=== PATIENT | male | born 1960 | race Caucasian/White ===

== ENCOUNTER 2023-06-22 08:20 | Outpatient (OUT) | payer BC, SELFPAY ==
[2023-06-22 09:04] LABS: Basophils Absolute Auto 0.1 10^3/uL (0.0-0.1); Basophils Percent Auto 1.2 % (0.2-2.0); Eosinophils Absolute Auto 0.2 10^3/uL (0.0-0.7); Eosinophils Percent Auto 4.5 % (0.9-7.0); Hematocrit 46.4 % (42.0-54.0); Hemoglobin 14.9 g/dL (14.0-18.0); Immature Granulocytes Abs Auto 0.01 10^3/uL (0.00-0.03); Immature Granulocytes Pct Auto 0.2 % (0.0-0.5); Lymphocytes Absolute Auto 1.9 10^3/uL (1.2-3.8); Lymphocytes Percent Auto 36.2 % (20.5-60.0); Mean Corpuscular HGB Conc 32.1 g/dL (29.9-35.2); Mean Corpuscular Hemoglobin 32.1 pg (25.9-34.0); Mean Platelet Volume 9.7 fL (9.5-13.5); Monocytes Absolute Auto 0.5 10^3/uL (0.3-0.8); Monocytes Percent Auto 10.1 % (1.7-12.0); Neutrophils Absolute Auto 2.5 10^3/uL (1.4-6.5); Neutrophils Percent Auto 47.8 % (43.0-75.0); Platelet Count 220 10^3/uL (150-450); Red Blood Count 4.64 10^6/uL (4.70-6.10); Red Cell Distribution Width 12.3 % (11.0-15.0); White Blood Count 5.2 10^3/uL (4.0-11.0)
[2023-06-22 10:03] LABS: Alanine Aminotransferase 43 U/L (16-63); Albumin Globulin Ratio 1.2; Alkaline Phosphatase 59 U/L (46-116); Anion Gap 11.8; Aspartate Amino Transferase 21 U/L (15-37); BUN Creatinine Ratio 13.3; Bilirubin Total 0.6 mg/dL (0.2-1.0); Calcium 9.5 mg/dL (8.5-10.1); Carbon Dioxide 30.9 mmol/L (21.0-32.0); Chloride 103 mmol/L (98-107); Chol HDL Ratio 4.1; Cholesterol 183 mg/dL (<=200); Estimated GFR (African America >60 (>=60); Estimated GFR (Non-African Ame >60 (>=60); Globulin 3.4 g/dL; Glucose 118 mg/dL (74-106); HDL Cholesterol 45 mg/dL (40-60); Potassium 4.7 mmol/L (3.5-5.1); Sodium 141 mmol/L (136-145); Total Protein 7.4 g/dL (6.4-8.2); Triglycerides 150 mg/dL (<=150)
[2023-06-22 10:25] LABS: Prostate Specific Antigen Scrn 0.49 ng/mL (<=4.00)
== END 2023-06-22 08:21 | disposition home or self-care (01) ==
LOC: LAB 08:23
PROVIDERS: PCP Internal Medicine; Visit Provider Internal Medicine
DX: Z00.00 Encounter for general adult medical examination without abnormal findings (principal)
CPT/HCPCS: 36415; 80053; 80061; 85025; G0103

== ENCOUNTER 2024-01-08 11:20 | Emergency (ER) | payer BC, SELFPAY ==
[2024-01-08 11:23] VITALS: BP 140/115; PULSE 80; TEMP 36.7; O2SAT 96; BMI 30.4
--- NOTE | 2024-01-08 11:36 | CT_ITS ---
[address] [address] Patient Name: LEXI ARAUZ MRN: [id number] date: 1960 Sex: M Assigned Patient Location: ER Current Patient Location: ER Accession/Order Number: [id number] Exam Date: 01/08/2024 12:08 Report Date: 01/08/2024 13:15 At the request of: GRAY BURRIS Procedure: CT abdomen pelvis wo con EXAM: CT abdomen pelvis wo con HISTORY: left flank pain COMPARISON: None. TECHNIQUE: CT abdomen pelvis without contrast. Axial scans with reformatted coronal sagittal images. Individualized radiation dose reduction used for this exam. FINDINGS: Lower chest: Abnormal basilar lung density bilateral. Groundglass/linear and possible 5 mm nodule left base. Probable atelectasis/scarring.. ABDOMEN: Kidneys/urinary tract: Mild left hydronephrosis and heart ureter secondary to a small 1-2 mm calculus in the distal left ureter at or near the ureterovesical junction. Left renal calculus or perirenal stranding. Right kidney ureter unremarkable without renal or ureteral calculus. Fluid-filled bladder with a small calculus distal left ureter noted above. Normal right pelvic ureter. Liver unremarkable. Small dependent gallstone without surrounding inflammation. No biliary dilatation. Adrenal glands, pancreas, spleen unremarkable. No ascites or free fluid. No adenopathy. Mildly ectatic aorta without aneurysm. Minimal plaque. No bowel dilatation ileus or obstruction. Normal-appearing appendix right lower quadrant. Pelvis: No mass or adenopathy or free fluid. Small calculus distal left ureter as noted above. Mildly prominent prostate with calcification. Fluid-filled bladder. MUSCULOSKELETAL: Previous lumbar surgery with pedicle screws L4, L5 and S1. Disc spacers L4-5 and L5-S1. Severe degenerative disc is a above the surgical level at L3-4 with osteophytes most prominent anteriorly and minimal anterolisthesis of L4. Severe facet arthropathy. Probable canal stenosis. CT/CT abdomen pelvis wo con IMPRESSION: 1. Mild left hydronephrosis and hydroureter secondary to a small 1-2 mm obstructing calculus distal left ureter near the ureterovesical junction. Mildly prominent prostate with calcification. 2. Small dependent gallstone without evidence of cholecystitis. 3. Basilar lung density probably areas of chronic atelectasis/scarring. Consider follow-up if symptomatic. Possible small nodule 5 mm left lung base. 4. Postoperative appearance lumbar sacral spine. Severe degenerative disc disease possible canal stenosis above the surgical level at L3-4. Electronically authenticated by: KIT JIMENEZ Date: 01/08/2024 13:15
[2024-01-08 11:43] LABS: Basophils Absolute Auto 0.1 10^3/uL (0.0-0.1); Basophils Percent Auto 0.7 % (0.2-2.0); Eosinophils Absolute Auto 0.3 10^3/uL (0.0-0.7); Eosinophils Percent Auto 3.7 % (0.9-7.0); Hematocrit 45.3 % (42.0-54.0); Hemoglobin 15.3 g/dL (14.0-18.0); Immature Granulocytes Abs Auto 0.02 10^3/uL (0.00-0.03); Immature Granulocytes Pct Auto 0.3 % (0.0-0.5); Lymphocytes Absolute Auto 2.5 10^3/uL (1.2-3.8); Lymphocytes Percent Auto 35.6 % (20.5-60.0); Mean Corpuscular HGB Conc 33.8 g/dL (29.9-35.2); Mean Corpuscular Hemoglobin 33.2 pg (25.9-34.0); Mean Corpuscular Volume 98.3 fL (80.0-94.0); Mean Platelet Volume 9.2 fL (9.5-13.5); Monocytes Absolute Auto 0.8 10^3/uL (0.3-0.8); Monocytes Percent Auto 10.6 % (1.7-12.0); Neutrophils Absolute Auto 3.5 10^3/uL (1.4-6.5); Neutrophils Percent Auto 49.1 % (43.0-75.0); Platelet Count 238 10^3/uL (150-450); Red Blood Count 4.61 10^6/uL (4.70-6.10); Red Cell Distribution Width 12.4 % (11.0-15.0); White Blood Count 7.1 10^3/uL (4.0-11.0)
[2024-01-08] MEDS: KETOROLAC TROMETHAMINE 30 MG/ML VIAL IVP (11:45)
[2024-01-08] MEDS: HYDROMORPHONE HCL 0.5 MG/0.5 ML SYRINGE IV (11:45)
[2024-01-08] MEDS: ONDANSETRON PF 4 MG/2 ML VIAL IV (11:45)
[2024-01-08 11:46] LABS: BUN Creatinine Ratio 13.7; Calcium 9.5 mg/dL (8.5-10.1); Carbon Dioxide 28.9 mmol/L (21.0-32.0); Chloride 102 mmol/L (98-107); Estimated GFR (African America >60 (>=60 mL/min/1.73m^2); Estimated GFR (Non-African Ame >60 (>=60 mL/min/1.73m^2); Glucose 103 mg/dL (74-106); Potassium 3.9 mmol/L (3.5-5.1); Sodium 139 mmol/L (136-145)
[2024-01-08 11:49] VITALS: O2SAT 97
--- NOTE | 2024-01-08 12:51 | ED_ITS ---
HPI HPI - General Adult General Chief complaint: Back Pain/Injury Stated complaint: ABDOMINAL PAIN Time Seen by Provider: 01/08/24 11:22 Source: patient Mode of arrival: walk-in History of Present Illness HPI narrative: 63-year-old male to the emergency department with chief complaint of left-sided flank pain. Feels similar to previous kidney stones. He is a sharp pain. Intermittent in nature. 10 out of 10 at worst. He denies any fever, sweats, chills. He reports nausea without vomiting. Radiates into the left groin. Normal bowel movements. Otherwise at his baseline health. Symptoms began this morning. Related Data Previous Rx's ?Medication ?Instructions ?Recorded ondansetron 4 mg disintegrating 4 mg PO Q8H PRN nausea and 01/08/24 tablet vomiting 4 days #16 tabs oxycodone-acetaminophen 5 mg-325 1 tab PO Q8H PRN pain 3 days #12 01/08/24 mg tablet (Percocet) tabs Allergies Allergy/AdvReac Type Severity Reaction Status Date / Time morphine Allergy Severe Difficulty Verified 01/08/24 11:23 Breathing Opioid HPI Opioid Management Most Recent Opioid Data: Last Pain Scale 8 01/08/24 11:45 01/08/24 Last MAR Pain Assessment 01/08/24 11:45 Review of Systems ROS Status of ROS 10 or more systems reviewed and unremark able except as noted in history and below Exam Narrative Exam Narrative: VITALS: I have reviewed the triage vital signs. GENERAL: Uncomfortable appearing adult male holding left flank. NEURO: Alert and oriented. Moves all extremities. Face is symmetric and expressive. EYES: PERRL. No scleral icterus or conjunctival injection. No discharge. HENT: Normocephalic, atraumatic. Hearing is grossly intact. Nares grossly patent and without discharge. Mucous membranes moist. NECK: No JVD. Patient moves neck without restriction. CARDIO: Rhythm regular. Normal rate. No murmur, rub, or gallop. Pulses equal bilaterally in the upper and lower extremity. No lower extremity edema. PULM: Lungs clear to auscultation in all bundy. No wheezes, rales, or rhonchi. No conversational dyspnea. No splinting, stridor, or accessory muscle use. GI/: Abdomen is soft and non-tender. Left flank tenderness. Normoactive bowel sounds. EXTREMITIES: Symmetric muscle bulk. No joint swelling. No clubbing, cyanosis, or deformity. SKIN: Warm and dry. Normal turgor. No rash or lesions appreciated. PSYCH: Mood, affect, and interaction is appropriate to the setting. Constitutional Vital Signs, click to edit/add: Last Vital Signs Temp 98.1 F 01/08/24 11:23 Pulse 56 L 01/08/24 13:52 Resp 16 01/08/24 13:52 BP 150/90 H 01/08/24 13:52 Pulse Ox 96 01/08/24 13:52 O2 Del Method Room Air 01/08/24 11:49 Course Vital Signs Vital signs: Vital Signs Temperature 98.1 F 01/08/24 11:23 Pulse Rate 80 01/08/24 11:23 Respiratory Rate 20 01/08/24 11:23 Blood Pressure 140/115 H 01/08/24 11:23 Pulse Oximetry 96 01/08/24 11:23 Oxygen Delivery Method Room Air 01/08/24 11:23 Temperature 98.1 F 01/08/24 11:23 Pulse Rate 56 L 01/08/24 13:52 Respiratory Rate 16 01/08/24 13:52 Blood Pressure 150/90 H 01/08/24 13:52 Pulse Oximetry 96 01/08/24 13:52 Oxygen Delivery Method Room Air 01/08/24 11:49 Medical Decision Making [facility] Narrative Medical decision making narrative: 63-year-old male to the emergency department with chief complaint of left-sided flank pain. Vital stable, the patient is afebrile. He is in obvious discomfort, holding his left flank. High clinical suspicion for kidney stone based on history and exam. Will proceed with CT imaging, basic labs, urinalysis. Morphine, Toradol, Zofran for symptoms. Patient agrees with this plan. Lab Data Labs: Lab Results 01/08/24 01/08/24 Range/Units 11:28 13:15 WBC 7.1 (4.0-11.0) 10^3/uL RBC 4.61 L (4.70-6.10) 10^6/uL Hgb 15.3 (14.0-18.0) g/dL Hct 45.3 (42.0-54.0) % MCV 98.3 H (80.0-94.0) fL MCH 33.2 (25.9-34.0) pg MCHC 33.8 (29.9-35.2) g/dL RDW 12.4 (11.0-15.0) % Plt Count 238 (150-450) 10^3/uL MPV 9.2 L (9.5-13.5) fL Neut % (Auto) 49.1 (43.0-75.0) % Lymph % (Auto) 35.6 (20.5-60.0) % Hernando % (Auto) 10.6 (1.7-12.0) % Eos % (Auto) 3.7 (0.9-7.0) % Baso % (Auto) 0.7 (0.2-2.0) % Neut # (Auto) 3.5 (1.4-6.5) 10^3/uL Lymph # (Auto) 2.5 (1.2-3.8) 10^3/uL Hernando # (Auto) 0.8 (0.3-0.8) 10^3/uL Eos # (Auto) 0.3 (0.0-0.7) 10^3/uL Baso # (Auto) 0.1 (0.0-0.1) 10^3/uL Abs Immat Gran (auto) 0.02 (0.00-0.03) 10^3/uL Imm/Tot Granulo (auto) 0.3 (0.0-0.5) % Sodium 139 (136-145) mmol/L Potassium 3.9 (3.5-5.1) mmol/L Chloride 102 (98-107) mmol/L Carbon Dioxide 28.9 (21.0-32.0) mmol/L Anion Gap 12.0 BUN 16.0 (7.0-18.0) mg/dL Creatinine 1.17 (0.70-1.30) mg/dL Est GFR ( Amer) >60 (>=60 mL/min/1.73m^2) Est GFR (Non-Af Amer) >60 (>=60 mL/min/1.73m^2) BUN/Creatinine Ratio 13.7 Glucose 103 (74-106) mg/dL Calcium 9.5 (8.5-10.1) mg/dL Urine Color Lt. yellow (YELLOW) Urine Clarity Clear (CLEAR) Urine pH 6.0 (5.0-9.0) Ur Specific [place] 1.010 (1.005-1.025) Urine Protein Negative (NEG/TRACE) mg/dL Urine Glucose (UA) Negative (NEGATIVE) mg/dL Urine Ketones Negative (NEGATIVE) mg/dL Urine Occult Blood Large A (NEGATIVE) Urine Nitrite Negative (NEGATIVE) Urine Bilirubin Negative (NEGATIVE) Urine Urobilinogen 0.2 (0.2-1.0) EU/dL Ur Leukocyte Esterase Negative (NEGATIVE) Urine RBC 20-50 A (0-2) #/HPF Urine WBC 0-2 A (NONE SEEN) #/HPF Ur Squamous Epith Cells Rare (NONE/RARE) #/LPF Urine Crystals None seen (None Seen) #/HPF Urine Bacteria Trace A (NONE SEEN) #/HPF Urine Casts None seen (NONE SEEN) #/LPF Urine Mucus Moderate A (NONE SEEN) Ur Culture Indicated? No Discharge Plan Discharge Chief Complaint: Back Pain/Injury Clinical Impression: Kidney stone on left side Patient Disposition: Home, Self-Care Time of Disposition Decision: 13:39 Condition: Good Mode of Transportation: Private Vehicle Prescriptions / Home Meds: New ondansetron 4 mg tablet,disintegrating 4 mg PO Q8H PRN (Reason: nausea and vomiting) 4 Days Qty: 16 0RF oxycodone-acetaminophen [Percocet] 5-325 mg tablet 1 tab PO Q8H PRN (Reason: pain) 3 Days Qty: 12 0RF Print Language: Bengali Instructions: Renal Colic (ED) Additional Instructions: Call the office of your primary care doctor to arrange for follow-up within the above-stated timeframe. Your ED visit was focused on your acute issue and does not replace primary care. You should review your labs, imaging, and diagnoses from this ED visit with your primary care physician. There may be non-emergent/ incidental findings that need further evaluation. You should review your vital signs including blood pressure with your PCP. If you were prescribed medications you should discuss possible side-effects and drug interactions with your pharmacist. Call 911 or go to the nearest Emergency Department if you develop any new or worsening symptoms. Seek immediate medical attention if you develop: worsening abdominal pain, new or worsening nausea, new or worsening vomiting, new or worsening diarrhea, chest pain, shortness of breath, pain with urination, problems urinating, fever, chills, weakness, or any new or worsening symptoms. Referrals: Rashawn Sanchez DO [Primary Care Provider] - 1 week Discharge Date/Time: 01/08/24 13:56
[2024-01-08 13:21] LABS: Bilirubin Urine NEGATIVE (NEGATIVE); Blood Urine LARGE (NEGATIVE); Clarity Urine CLEAR (CLEAR); Color Urine LT. YELLOW (YELLOW); Glucose Urine UA NEGATIVE (NEGATIVE); Ketones Urine NEGATIVE (NEGATIVE); Leukocyte Esterase Urine NEGATIVE (NEGATIVE); Nitrite Urine NEGATIVE (NEGATIVE); Protein Urine NEGATIVE (NEG/TRACE); Urobilinogen Urine 0.2 EU/dL (0.2-1.0)
[2024-01-08 13:22] LABS: Urine Microscopic Indicated YES
[2024-01-08 13:28] LABS: WBC Urine 0-2 #/HPF (NONE SEEN)
[2024-01-08 13:29] LABS: Bacteria Urine TRACE #/HPF (NONE SEEN); Cast Seen? NONE SEEN #/LPF (NONE SEEN); Crystals Seen? None Seen #/HPF (None Seen); Mucus Urine MODERATE (NONE SEEN); RBC Urine 20-50 #/HPF (0-2); Squamous Epithelial Cell Urine RARE #/LPF (NONE/RARE); Urine Culture Indicated NO
[2024-01-08 13:52] VITALS: BP 150/90; PULSE 56; O2SAT 96
== END 2024-01-08 13:56 | disposition home or self-care (01) ==
PROVIDERS: Emergency Provider Student in an Organized Health Care Education/Training Program; PCP Internal Medicine
DX: N20.0 Calculus of kidney (principal); Z87.442 Personal history of urinary calculi
CPT/HCPCS: 36415; 74176; 80048; 81001; 85025; 96374; 96375; 99285; J1171; J1885; J2405

== ENCOUNTER 2024-07-22 08:06 | Outpatient (OUT) | payer BC, SELFPAY ==
[2024-07-22 08:29] LABS: Basophils Percent Auto 0.9 % (0.2-2.0); Eosinophils Absolute Auto 0.3 10^3/uL (0.0-0.7); Eosinophils Percent Auto 5.9 % (0.9-7.0); Hematocrit 45.8 % (42.0-54.0); Hemoglobin 15.5 g/dL (14.0-18.0); Immature Granulocytes Abs Auto 0.01 10^3/uL (0.00-0.03); Immature Granulocytes Pct Auto 0.2 % (0.0-0.5); Lymphocytes Absolute Auto 1.8 10^3/uL (1.2-3.8); Lymphocytes Percent Auto 40.6 % (20.5-60.0); Mean Corpuscular HGB Conc 33.8 g/dL (29.9-35.2); Mean Corpuscular Hemoglobin 33.3 pg (25.9-34.0); Mean Corpuscular Volume 98.3 fL (80.0-94.0); Mean Platelet Volume 9.4 fL (9.5-13.5); Monocytes Absolute Auto 0.5 10^3/uL (0.3-0.8); Monocytes Percent Auto 11.6 % (1.7-12.0); Neutrophils Absolute Auto 1.8 10^3/uL (1.4-6.5); Neutrophils Percent Auto 40.8 % (43.0-75.0); Platelet Count 215 10^3/uL (150-450); Red Blood Count 4.66 10^6/uL (4.70-6.10); Red Cell Distribution Width 12.3 % (11.0-15.0); White Blood Count 4.4 10^3/uL (4.0-11.0)
[2024-07-22 08:54] LABS: Alanine Aminotransferase 40 U/L (16-63); Albumin Globulin Ratio 1.2; Alkaline Phosphatase 65 U/L (46-116); Anion Gap 10.9; Aspartate Amino Transferase 19 U/L (15-37); BUN Creatinine Ratio 15.9; Bilirubin Total 0.4 mg/dL (0.2-1.0); Calcium 9.4 mg/dL (8.5-10.1); Carbon Dioxide 29.9 mmol/L (21.0-32.0); Chloride 105 mmol/L (98-107); Chol HDL Ratio 5.6; Cholesterol 214 mg/dL (<=200); Estimated GFR (African America >60 (>=60 mL/min/1.73m^2); Estimated GFR (Non-African Ame >60 (>=60 mL/min/1.73m^2); Globulin 3.3 g/dL; Glucose 121 mg/dL (74-106); HDL Cholesterol 38 mg/dL (40-60); Potassium 4.8 mmol/L (3.5-5.1); Sodium 141 mmol/L (136-145); Total Protein 7.3 g/dL (6.4-8.2); Triglycerides 308 mg/dL (<=150); VLDL CHOLESTEROL 61.6 mg/dL
== END 2024-07-22 08:07 | disposition home or self-care (01) ==
LOC: LAB 08:07
PROVIDERS: PCP Internal Medicine; Visit Provider Internal Medicine
DX: Z00.00 Encounter for general adult medical examination without abnormal findings (principal); Z12.5 Encounter for screening for malignant neoplasm of prostate
CPT/HCPCS: 36415; 80053; 80061; 85025; G0103

== ENCOUNTER 2025-03-21 09:35 | Outpatient (OUT) | payer OTHER, SELFPAY ==
--- OUTSIDE RECORDS SUMMARY | 2025-03-21 09:46 | XMS_ITS | Clinical Summary ---
Author Organization [facility] Address [address] [address] [place] [address] Phone Care Team Providers Care Family Resource Management Professor Name Role Phone Unavailable Primary Care Provider Unavailabl e Social History Tobacco UseTypesPacks/DayYears UsedDateSmoking Tobacco: Never AssessedSex and Gender InformationValueDate RecordedSex Assigned at BirthNot on fileLegal Sex Male02/21/2022 5:49 PM ESTGender IdentityNot on fileSexual OrientationNot on file Plan of Treatment Not on file
--- OUTSIDE RECORDS SUMMARY | 2025-03-21 09:46 | XMS_ITS | Patient Health Record ---
Author Organization [facility] [place] Address [address] [place] [address] Care Team Providers Care Shearer [employer]ards Name Role Phone Rashawn Sanchez DO Primary Care Provider Unavaila ble Allergies Allergen (clinical drug ingredient) Drug/Non Drug Allergy documented on EMR Reaction Allergy Type Onset Date Status morphine morphine (uncoded) Unknown Allergy Active Reason For Referral No Information Medications Medication SIG (Take, Route, Frequency, Duration) Notes Start Date End Date Status CPM --- as directed Use as directed ever y 6-8 hrs; Duration: 21 days ActiveMS Contin 30 MG1 tablet Orally every 12 hrs; Duration: 15 daysNot-Taking Commode Bedsideas directedActiveUnloader brace -use as directed Medial Assistant Maintenance Manager Brace Daily; Duration: Expires in 5 yrs04/24/2016ActiveFinasteride 5 MG1 tablet Orally Once a dayActiveDiclofenac Sodium 75 MG1 tablet Orally Once a dayActive Citalopram HydrobromideActiveRapport RLSActivePercocet 5-325 MG1-2 tablets PRN Orally every 4-6 hrs; Duration: 10 daysActiveBath/Shower Seatas directedActive Azuphen MB 120 MG1 capsule Orally Four times a dayActiveLipitor 10 MG1 tablet Orally Once a dayActiveGabapentinActiveFolding Walker/Adultas directedActive Keflex 500 MG4 capsules Orally one hour before any dental procedure; Duration: 5 days02/02/2018ActiveHandicapped Tag -as directed - -; Duration: Expires in 1 yr. 01/21/2016Active Problems Problem Type SNOMED Code ICD Code Onset Dates Problem Status W/U Status Risk Notes Problem History of musculosk eletal operation (660042085) Aftercare following joint replacement surgery (Z47.1) ActiveconfirmedProblemOsteoarthritis of knee (815047201)Primary osteoarthritis of right knee (M17.11)ActiveconfirmedProblemOsteoarthritis of knee (574084153) Primary osteoarthritis of left knee (M17.12)ActiveconfirmedProblemOsteoarthritis of knee (995358904)Primary osteoarthritis of both knees (M17.0)Activeconfirmed ProblemHistory of left total knee replacement (0895104702477769)History of total left knee replacement (Z96.652)ActiveconfirmedProblemArtificial knee joint present (157591715580)History of total knee replacement (Z96.659)Activeconfirmed Plan Of Treatment No Information Insurance Providers Payer Name Payer Address Payer Phone Subscriber Number Group Number Insured Name Patient Relationship to Insured Coverage Start Date Coverage End Date BCBS OUT OF STATE [address] [place] [address] [id number] Balaji Hubbard Self - patient is the insured 2017 Medications Administered Medication Instructions Date of Administration Dosage Notes Depo-Medrol, 40 mg/mL mLDepo-Medrol, 40 mg/mL mLDepo-Medrol, 40 mg/mL06/17/2017 1 mL Medical (General) History Medical History History ICD Code Depression/Anxiety Kidney stonesSurgical History Surgery Date(Month/Year) Knee Arthroscopy 10/2001 Lt knee TKA 04/2015 lithotrypsy spinal hrhfmo41/2016LasikHospitalization History Reason Date(Month/Year) See above
--- OUTSIDE RECORDS SUMMARY | 2025-03-21 09:46 | XMS_ITS | Clinical Summary ---
Author Organization [facility] Address [address] [place] [address] Care Team Providers Care Associate Dean Of Students Name Role Phone Rashawn Sanchez DO Primary Care Provider [phone] Allergies Active AllergyReactionsCriticalityNoted DateCommentsMorphineAnaphylaxis, Shortness of breath,KzcmtctEnre64/18/2016 Medications MedicationSigDispense QuantityRefillsLast FilledStart DateEnd DateStatus acetaminophen (Tylenol) 325 MG tablet Take 650 mg by mouth every 4 (four) hours if neededActive atorvastatin (Lipitor) 40 MG tablet TAKE 1 TABLET BY MOUTH EVERY DAY FOR 30 DAYSActive citalopram (CeleXA) 20 MG tablet Daily at vcsobju2609/11/2023ctive Active Problems ProblemNoted DateDiagnosed DateSpondylosis without myelopathy or radiculopathy, lumbar mewigo4711/22/2023Failed back syndrome of lumbar spine11/22/2023Lumbar stenosis without neurogenic yahlnokhqeul88/25/2024MI 31.0-31.9,adult11/16/2023 Elevated uwaliwatptr07/19/1483Fxdlckjvhsmjcw31/19/2024ost-op pain11/16/2023 Primary maawfrau64/19/2024rimary osteoarthritis of both knees11/16/2023 Spondylosis of lumbar spine11/16/2023History of total knee arthroplasty, right 05/31/2019Osteoarthritis of knee05/17/2019Low back pain, pjzoxsdtocl91/22/2017 Spinal stenosis, lumbar region without neurogenic ugjbbbowweul33/16/2016 Ghjjcfdbxwxy35/21/2014 Social History Tobacco UseTypesPacks/DayYears UsedDateSmoking Tobacco: NeverSmokeless Tobacco: NeverAlcohol UseStandard Drinks/WeekCommentsDefer0 (1 standard drink = 0.6 oz pure alcohol)Sex and Gender InformationValueDate RecordedSex Assigned at Not on fileLegal NgfSddh5306/11/2022 7:10 PM EDTGender IdentityNot on fileSexual OrientationNot on file Last Filed Vital Signs Vital SignReadingTime TakenCommentsBlood Pressure--Pulse--Temperature-- Respiratory Rate--Oxygen Saturation--Inhaled Oxygen Concentration--Ugdqve43.7 kg (200 lb)06/01/2024 2:05 PM ISXIehdde652.7 cm (5' 8 )06/01/2024 2:05 PM ESTBody Mass Index30.41006/01/2024 2:05 PM EST Plan of Treatment Not on file Insurance Care Teams Team MemberRelationshipSpecialtyStart DateEnd Date Rashawn Sanchez DO [address] [place] [address] PCP - GeneralInternal Medicine11/13/22
--- OUTSIDE RECORDS SUMMARY | 2025-03-21 09:46 | XMS_ITS | Clinical Summary ---
Author Organization [facility] Address [address], [address] [place] [address] Care Team Providers Care Ward Aide Name Role Phone Rashawn Sanchez DO Primary Care Provider [phone] Allergies Active AllergyReactionsCriticalityNoted DateCommentsMorphineAnaphylaxisHigh 03/10/2018 Medications MedicationSigDispense QuantityRefillsLast FilledStart DateEnd DateStatus atorvastatin (LIPITOR) 40 MG tablet 10105/10/2017Active citalopram (CELEXA) 20 MG tablet Active diclofenac (VOLTAREN) 75 MG EC tablet Active finasteride (PROSCAR) 5 MG tablet Active alfuzosin (UROXATRAL) 10 MG extended release tablet Active acetaminophen (TYLENOL) 325 MG tablet Take 650 mg by mouth every 4 hours as needed for PainActive rivaroxaban (XARELTO) 10 MG TABS tablet Take 1 tablet by mouth daily (with breakfast) 10 tablet 05/31/2019ActiveHospital, Clinic, or Other Facility Administered Medication Ordered DoseRouteFrequencyStart DateEnd DateStatus lidocaine 1 % injection 4 mL Indications:Primary osteoarthritis of right knee4 vPGLUTIY56/13/2018Active methylPREDNISolone acetate (DEPO-MEDROL) injection 40 mg Indications:Primary osteoarthritis of right knee40 qqKELOSE50/13/2018Active Active Problems ProblemNoted DateDiagnosed DateBenign prostatic hyperplasia without lower urinary tract ozxjseab65/04/2020History of total knee arthroplasty, right 05/31/2019Post-op painHypertensionHyperlipidemiaAnxiety Family History Medical HistoryRelationNameCommentsHigh CholesterolFatherHigh Cholesterol Maternal GrandfatherHigh CholesterolMotherHigh CholesterolPaternal Grandfather RelationNameStatusCommentsFatherAliveMaternal GrandfatherAliveMotherAlive Paternal GrandfatherAlive Social History Tobacco UseTypesPacks/DayYears UsedDateSmoking Tobacco: NeverSmokeless Tobacco: Never Tobacco Cessation:Counseling Given: No Alcohol UseStandard Drinks/WeekCommentsYes0 (1 standard drink = 0.6 oz pure alcohol)rarelyAUDIT-CAnswerDate RecordedFrequency of Alcohol ConsumptionNever 12/31/2018Average Number of DrinksNot on file12/31/2018Frequency of Binge DrinkingNot on file12/31/2018Sex and Gender InformationValueDate RecordedSex Assigned at EyvlrRtmu29/07/2020 7:43 AM EDTLegal RemLjuv6505/14/2015 2:22 PM EST Gender WvbsymnvQcqm50/07/2020 7:43 AM EDTSexual XsmpnjfnduoFfwomnzs64/07/2020 7:43 AM EDT Last Filed Vital Signs Vital SignReadingTime TakenCommentsBlood Bknsaxfm013/8407 4:13 PM EDT Obwoy859110/27/2019 4:13 PM ZMEFbdjctsdjvg86.3 ??C (99.1 ??F)06/02/2019 12:08 PM ESTRespiratory Xete4406 12:08 PM ESTOxygen Epaepfrnoa45%06/02/2019 12:08 PM ESTInhaled Oxygen Concentration--Tnbmrt16 kg (205 lb)10/27/2019 4:06 PM EDT Zljrrn508.2 cm (5' 7 )10/27/2019 4:06 PM EDTBody Mass Index32.1107 4:06 PM EDT Plan of Treatment Not on file Medical Devices ImplantedTypeAreaManufacturerDevice IdentifierShelf Expiration DateModel / Serial / LotCement Bone R 1x40 Us Implanted:Qty: 1 on 05/31/2019 [facility] Isaac [id number] / / [id number] Bone R 1x40 Us Implanted:Qty: 1 on 05/31/2019 by [facility] at [facility]: KneeZIMMER INC-PMM06/27/[id number] / / [id number] Knee Patella Comp Resurf 35mm Implanted:Qty: 1 on 05/31/2019 by [facility]: KneeSMIT-PMM12/25/[id number] / / [id number] Knee Tib Baseplt Journey Grape Crusher Rt Sz 6 Implanted:Qty: 1 on 05/31/2019 [facility] KneeSMIT-PMM1/[id number] / / [id number] Knee Jrny Ii Bcs Ox Sz 6 Rt Implanted:Qty: 1 on 05/31/2019 by [facility]: KneeSMIT-PMM12/19/[id number] / / [id number] Knee Tib Art Jrny Ii Xple 5-6 11mm Rt Implanted:Qty: 1 on 05/31/2019 by [facility]: KneeSUNIV[facility]-[id number] / / [id number] Insurance Advance Directives * Full Code (Latest Code Status on File) Date ActivatedDate InactivatedComments05/31/2019 12:41 PM06/02/2019 4:24 PM Care Teams Team MemberRelationshipSpecialtyStart DateEnd Date Rashawn Sanchez DO PCP - GeneralInternal Uchzmzto50/7/18
--- OUTSIDE RECORDS SUMMARY | 2025-03-21 09:46 | XMS_ITS | Clinical Summary ---
Author Organization [facility] Address [facility] [place] [address] Care Team Providers Care Insurance Risk Analyst Name Role Phone Rashawn Sanchez DO Primary Care Provider [phone] Allergies Active AllergyReactionsCriticalityNoted HaxxBrkoueevOdahulpv77/18/2020 Medications MedicationSigDispense QuantityRefillsLast FilledStart DateEnd DateStatus alfuzosin (UROXATRAL) 10 mg 24 hr tablet Take 10 mg by mouth daily.Active citalopram (CeleXA) 20 mg tablet Take 20 mg by mouth daily.Active diclofenac (VOLTAREN) 75 mg EC tablet Take 75 mg by mouth 2 (two) times a day.Active finasteride (PROSCAR) 5 mg tablet Take 5 mg by mouth daily.Active rosuvastatin (CRESTOR) 20 mg tablet Take 20 mg by mouth daily.Active Active Problems ProblemNoted DateDiagnosed DateOsteoarthritis of knee05/17/2019 Social History Tobacco UseTypesPacks/DayYears UsedDateSmoking Tobacco: NeverAlcohol UseStandard Drinks/WeekCommentsYes0 (1 standard drink = 0.6 oz pure alcohol)ChildcareAnswer Date AjeuysnwMxnshbsffEfwqdmb69/12/2019EmploymentAnswerDate RecordedEmployment Gmrtwsc9709/08/2018Purpose - LifeAnswerDate RecordedPurpose and direction in life Eqsqhmn43/11/2021Sex and Gender InformationValueDate RecordedSex Assigned at BirthNot on fileLegal XwkYmbp51/30/2015 10:53 AM ESTGender IdentityNot on file Sexual OrientationNot on file Last Filed Vital Signs Vital SignReadingTime TakenCommentsBlood Wcbueyok536/8405/17/2019 8:53 AM EST Ynydk265205/17/2019 8:53 AM ESTTemperature--Respiratory Rate--Oxygen Saturation-- Inhaled Oxygen Concentration--Gsdfql17.5 kg (212 lb 11.9 oz)05/17/2019 8:53 AM QTHDbrcvr448.7 cm (5' 8 )05/17/2019 8:53 AM ESTBody Mass Index32.35005/17/2019 8:53 AM EST Plan of Treatment Health MaintenanceDue DateLast DoneCommentsDepression Rzrtthpgy72/09/1972Tobacco Glcmummur38/09/1972Adult BMI Barprabxz85/09/1978DTaP,Tdap and Td Vaccines (1 - Tdap)1979Zoster (Shingles) Vaccine (1 of 2)2010Influenza Vaccine 11/28/2024Fall Risk Flpjjxajb46/09/2025RSV ( or age 60+ yrs) (1 - 1-dose 75+ series)2035 Medical Devices Not on file Insurance Care Teams Team MemberRelationshipSpecialtyStart DateEnd Date Rashawn Sanchez DO [address] [place] [address] PCP - GeneralInternal Medicine05/17/19
--- NOTE | 2025-03-21 09:49 | XR_ITS ---
[facility] [place] [id number] Patient Name: LEXI ARAUZ MRN: [id number] date: 1960 Sex: M Assigned Patient Location: RAD Current Patient Location: [facility] Accession/Order Number: [id number] Exam Date: 03/21/2025 09:51 Report Date: 03/21/2025 11:32 At the request of: BELIA PRUITT MD Procedure: XR abdomen 1V SINGLE VIEW ABDOMEN COMPARISON: CT 02/07/2024 CLINICAL DATA: Follow-up patient with history of kidney stones. Supine view of the abdomen and pelvis was obtained. There is mild air and stool within the colon. There is no dilated small bowel. No soft tissue masses are seen. No definite radiopaque renal or ureteral stones are identified. There are postoperative and degenerative changes at the spine. Slight dextroscoliotic curvature is seen. XR/XR abdomen 1V IMPRESSION: NO RADIOPAQUE STONES. Impression dictated by: Soniya Stern M.D. 03/21/2025 11:32 AM Dictation Location: [facility] Electronically authenticated by: [id number] Y Date: 03/21/2025 11:32
== END 2025-03-21 09:36 | disposition home or self-care (01) ==
LOC: RAD 09:42
PROVIDERS: PCP Internal Medicine; Visit Provider Urology
DX: Z87.442 Personal history of urinary calculi (principal)
CPT/HCPCS: 74018